=== PATIENT | female | born 1955 | race African-American/Black ===

== ENCOUNTER 2021-02-28 14:40 | Inpatient (IN) | payer MEDICAID ==
[~2021-02-28] VITALS: Ht 162.6 cm; Wt 53.7 kg
[~2021-02-28 14:40] MED LIST: CLINDAMYCIN; CLOP75TA28; LEVOXYL; SYNTHROID; TYLENOL WITH CODEINE
[2021-02-28 15:19] LABS: Basophils # (auto) 0.1 10 ^3/uL (0-0.2); Basophils % (auto) 0.6 % (0.0-2.0); Eosinophils # (auto) 0 10 ^3/uL (0-0.8); Eosinophils % (auto) 0.1 % (0.0-7.0); Hematocrit 41.8 % (36.0-46.0); Hemoglobin 13.7 g/dL (12.2-16.2); Lymphocytes % (auto) 9.7 % (10.0-50.0); Mean Corpuscular Hemoglobin 26.9 pg (28.0-32.0); Mean Corpuscular Hgb Conc. 32.8 g/dL (32.0-36.0); Mean Corpuscular Volume 81.9 fL (80.0-100.0); Monocytes # (auto) 0.7 10 ^3/uL (0-1.3); Monocytes % (auto) 7.2 % (0.0-12.0); Neutrophils # (auto) 8.5 10 ^3/uL (1.6-8.6); Neutrophils % (auto) 82.4 % (37.0-80.0); Red Cell Distribution Width 13.6 % (11.8-14.3); White Blood Cell 10.3 10^3/uL (4.4-10.8)
[2021-02-28 15:55] LABS: Albumin 3.2 g/dL (3.4-5.0); Calcium 10.1 mg/dL (8.5-10.1); Potassium 4.8 mmol/L (3.5-5.1)
[2021-02-28 15:58] LABS: BUN/Creatinine Ratio 23.5; Bilirubin, Total 0.4 mg/dL (0.2-1.0); Total Protein 8.3 g/dL (6.4-8.2)
[2021-02-28] MEDS ORDERED: IOHEXOL 300 MG/ML 100ML BOTTLE IJ ONE (16:58)
[2021-02-28] MEDS ORDERED: METOCLOPRAMIDE HCL 5MG/ml INJ 2ml VIAL IV ONE (17:00)
[2021-02-28] MEDS ORDERED: SODIUM CHLORIDE 0.9% 1,000 ML IV ONE (17:00)
[2021-02-28] MEDS ORDERED: SODIUM CHLORIDE 0.9% 500 ML IVB ONE (17:00)
[2021-02-28] MEDS ORDERED: HYDROmorphone HCL 2 MG/ML VL IV ONE ×2 (17:00→22:00)
[2021-02-28 17:33] LABS: Magnesium 2.4 mg/dL (1.6-2.6)
[2021-02-28 17:38] LABS: Urine Bacteria FEW /hpf (None Seen); Urine Blood Negative /uL (Negative); Urine Hyaline Cast MANY /lpf (0 - 2); Urine Mucus FEW (None Seen); Urine Specific Gravity 1.029 (1.001-1.035); Urine WBC 2 /hpf (0 - 5)
[2021-02-28] MEDS ORDERED: CIPROFLOXACIN 400MG/200ML 200 ML IV ONE (21:00)
[2021-02-28] MEDS ORDERED: metroNIDAZOLE 500MG/100ML 100 ML IV ONE (21:00)
[2021-02-28] MEDS ORDERED: ONDANSETRON HCL 4 MG/2 ML VIAL ONE (21:50)
[2021-02-28] MEDS ORDERED: ONDANSETRON HCL 4 MG/2 ML VIAL IV ONE (22:00)
[2021-02-28 22:29] LABS: INR 1.02 (0.9-1.15)
[2021-02-28] MEDS: SODIUM CHLORIDE 0.9% 1,000 ML IV SCH (23:45)
[2021-02-28] MEDS ORDERED: HYDROcodone-ACET 5/325MG TAB PO PRN (23:45)
[2021-02-28] MEDS ORDERED: ACETAMINOPHEN 325 MG TAB PO PRN (23:45)
[2021-03-01] VITALS (8 sets, daily range): BP systolic 114–161; BP diastolic 66–96
[2021-03-01] MEDS ORDERED: NITROGLYCERIN 0.4 MG SL TAB SL PRN (00:15)
[2021-03-01] MEDS ORDERED: MORPHINE SULFATE INJECTION 2 MG/ML SYRG IV PRN (00:15)
[2021-03-01] MEDS: hydrALAZINE HCL 20 MG/ML VL IV PRN (01:17)
[2021-03-01] MEDS: HYDROmorphone HCL 2 MG/ML VL IV PRN ×5 (01:17→22:19)
[2021-03-01] MEDS ORDERED: TRAZ50TA2 PO (01:47)
[2021-03-01] MEDS ORDERED: ATOR40TA52 PO (01:47)
[2021-03-01] MEDS ORDERED: CARV3.1240 PO (01:47)
[2021-03-01] MEDS ORDERED: LISI-275 PO (01:47)
[2021-03-01] MEDS: metroNIDAZOLE 500MG/100ML 100 ML IV SCH ×3 (05:14→22:18)
[2021-03-01 05:25] LABS: Hemoglobin 11.7 g/dL (12.2-16.2); Red Cell Distribution Width 13.5 % (11.8-14.3); White Blood Cell 3.3 10^3/uL (4.4-10.8)
[2021-03-01 05:31] LABS: Hematocrit 34.5 % (36.0-46.0); Mean Corpuscular Hemoglobin 27.8 pg (28.0-32.0); Mean Corpuscular Hgb Conc. 33.9 g/dL (32.0-36.0); Mean Corpuscular Volume 82.1 fL (80.0-100.0); Red Blood Cells 4.21 10^6/uL (4.0-5.20)
[2021-03-01 05:37] LABS: Basophils % (manual) 0 (0.0-2.0); Blast Cells 0; Eosinophils % (manual) 0 (0-7); Metamyelocytes % 0; Myelocytes % 0; Promyelocytes % 0; Reactive Lymphocytes 0
[2021-03-01 05:38] LABS: Albumin 2.5 g/dL (3.4-5.0); Calcium 8.3 mg/dL (8.5-10.1)
[2021-03-01 05:49] LABS: BUN/Creatinine Ratio 28.3; Bilirubin, Total 0.4 mg/dL (0.2-1.0); Total Protein 6.5 g/dL (6.4-8.2)
[2021-03-01 07:30] LABS: Band Neutrophils % (manual) 10; Lymphocytes % (manual) 23 (10.0-50.0)
[2021-03-01 07:31] LABS: Monocytes % (manual) 16 (0-12)
[2021-03-01] MEDS: ENOXAPARIN SOD 40 MG/0.4 ML SYRINGE SC SCH (10:00)
[2021-03-01] MEDS: CIPROFLOXACIN 400MG/200ML 200 ML IV SCH ×2 (10:00→22:18)
[2021-03-01] MEDS: FAMOTIDINE (10MG/ML) 2ML VL IV SCH ×2 (10:00→22:18)
[2021-03-01] MEDS ORDERED: LEVO75TA6 PO (14:19)
[2021-03-01] MEDS ORDERED: HYDROmorphone HCL 2 MG/ML VL IV ONE (14:30)
[2021-03-01] MEDS: LEVOTHYROXINE SODIUM 100 MCG/5 ML INJ IV SCH (15:30)
[2021-03-01] MEDS: SODIUM CHLORIDE 0.9% 1,000 ML IV SCH (16:46)
[2021-03-02] MEDS: HYDROmorphone HCL 2 MG/ML VL IV PRN ×6 (02:14→21:18)
[2021-03-02] MEDS ORDERED: TEMAZEPAM 15 MG CAP PO ONE (03:00)
[2021-03-02 05:00] VITALS: BP 158/85
[2021-03-02 06:08] LABS: Basophils # (auto) 0 10 ^3/uL (0-0.2); Basophils % (auto) 0.3 % (0.0-2.0); Eosinophils # (auto) 0.1 10 ^3/uL (0-0.8); Eosinophils % (auto) 2.4 % (0.0-7.0); Hematocrit 32.3 % (36.0-46.0); Hemoglobin 10.6 g/dL (12.2-16.2); Lymphocytes # (auto) 1.1 10 ^3/uL (0.4-5.4); Lymphocytes % (auto) 26.1 % (10.0-50.0); Mean Corpuscular Hemoglobin 27.3 pg (28.0-32.0); Mean Corpuscular Hgb Conc. 32.8 g/dL (32.0-36.0); Mean Corpuscular Volume 83.1 fL (80.0-100.0); Monocytes # (auto) 0.7 10 ^3/uL (0-1.3); Neutrophils # (auto) 2.3 10 ^3/uL (1.6-8.6); Neutrophils % (auto) 54.2 % (37.0-80.0); Red Blood Cells 3.88 10^6/uL (4.0-5.20); Red Cell Distribution Width 13.6 % (11.8-14.3); White Blood Cell 4.3 10^3/uL (4.4-10.8)
[2021-03-02] MEDS: metroNIDAZOLE 500MG/100ML 100 ML IV SCH ×3 (06:12→21:18)
[2021-03-02] MEDS: hydrALAZINE HCL 20 MG/ML VL IV PRN (06:12)
[2021-03-02 06:26] LABS: Potassium 4.2 mmol/L (3.5-5.1)
[2021-03-02 06:32] LABS: BUN/Creatinine Ratio 27.3; Calcium 8.3 mg/dL (8.5-10.1)
[2021-03-02] MEDS: SODIUM CHLORIDE 0.9% 1,000 ML IV SCH (09:05)
[2021-03-02] MEDS: FAMOTIDINE (10MG/ML) 2ML VL IV SCH ×2 (09:25→21:25)
[2021-03-02] MEDS: LEVOTHYROXINE SODIUM 100 MCG/5 ML INJ IV SCH (09:25)
[2021-03-02] MEDS: CIPROFLOXACIN 400MG/200ML 200 ML IV SCH ×2 (09:26→22:48)
[2021-03-02 09:28] VITALS: BP 133/66
[2021-03-02] MEDS: ENOXAPARIN SOD 40 MG/0.4 ML SYRINGE SC SCH (09:37)
[2021-03-02 12:54] VITALS: BP 145/67
[2021-03-02] MEDS ORDERED: fentaNYL CITRATE 100 MCG/2 ML VL ONE (16:24)
[2021-03-02] MEDS ORDERED: fentaNYL CITRATE 5 ML ONE (16:25)
[2021-03-02] MEDS ORDERED: MIDAZOLAM HCL 2MG/2ML 2ml VIAL (1mg/ml) ONE (16:26)
[2021-03-02] MEDS ORDERED: NEOSTIGMINE 1 MG/ML INJ (10mg/10ML VIAL) ONE (16:26)
[2021-03-02] MEDS ORDERED: PROPOFOL 10 MG/ML 20 ML IV ONE (16:26)
[2021-03-02] MEDS ORDERED: ONDANSETRON HCL 4 MG/2 ML VIAL ONE (16:26)
[2021-03-02] MEDS ORDERED: ROCURONIUM 10MG/ML 10ML VIAL IV ONE (16:26)
[2021-03-02] MEDS ORDERED: GLYCOPYRROLATE 0.2 MG/ML 1ML VIAL ONE (16:26)
[2021-03-02 17:27] VITALS: BP 150/76
[2021-03-02 22:00] VITALS: BP 153/89
[2021-03-03] MEDS: SODIUM CHLORIDE 0.9% 1,000 ML IV SCH ×2 (01:54→18:14)
[2021-03-03] MEDS: hydrALAZINE HCL 20 MG/ML VL IV PRN (04:18)
[2021-03-03 05:02] VITALS: BP 151/73
[2021-03-03] MEDS: metroNIDAZOLE 500MG/100ML 100 ML IV SCH ×3 (05:18→21:57)
[2021-03-03] MEDS: ONDANSETRON HCL 4 MG/2 ML VIAL IV PRN (05:19)
[2021-03-03] MEDS: HYDROmorphone HCL 2 MG/ML VL IV PRN ×4 (05:20→20:07)
[2021-03-03 05:27] VITALS: BP 168/107
[2021-03-03 07:29] LABS: Basophils # (auto) 0 10 ^3/uL (0-0.2); Basophils % (auto) 0.2 % (0.0-2.0); Eosinophils # (auto) 0.1 10 ^3/uL (0-0.8); Eosinophils % (auto) 1.3 % (0.0-7.0); Hematocrit 33.3 % (36.0-46.0); Hemoglobin 10.7 g/dL (12.2-16.2); Lymphocytes # (auto) 0.5 10 ^3/uL (0.4-5.4); Lymphocytes % (auto) 9.7 % (10.0-50.0); Mean Corpuscular Hemoglobin 26.5 pg (28.0-32.0); Mean Corpuscular Hgb Conc. 32.2 g/dL (32.0-36.0); Mean Corpuscular Volume 82.3 fL (80.0-100.0); Monocytes # (auto) 0.7 10 ^3/uL (0-1.3); Monocytes % (auto) 12.5 % (0.0-12.0); Neutrophils % (auto) 76.3 % (37.0-80.0); Nucleated Red Blood Cells % 0.3 %; Red Blood Cells 4.05 10^6/uL (4.0-5.20); Red Cell Distribution Width 13.2 % (11.8-14.3); White Blood Cell 5.3 10^3/uL (4.4-10.8)
[2021-03-03 07:44] LABS: BUN/Creatinine Ratio 22.6; Calcium 8.2 mg/dL (8.5-10.1); Potassium 3.9 mmol/L (3.5-5.1)
[2021-03-03] MEDS ORDERED: GASTROGRAFIN 120 ML SOL ONE (08:52)
[2021-03-03 09:00] VITALS: BP 137/67
[2021-03-03] MEDS: ENOXAPARIN SOD 40 MG/0.4 ML SYRINGE SC SCH (10:00)
[2021-03-03] MEDS: CIPROFLOXACIN 400MG/200ML 200 ML IV SCH ×2 (10:42→21:57)
[2021-03-03] MEDS: FAMOTIDINE (10MG/ML) 2ML VL IV SCH ×2 (10:43→21:57)
[2021-03-03] MEDS: LEVOTHYROXINE SODIUM 100 MCG/5 ML INJ IV SCH (10:43)
[2021-03-03 12:43] VITALS: BP 141/74
[2021-03-03 16:49] VITALS: BP 171/90
[2021-03-03] MEDS ORDERED: levoFLOXacin 500MG 100 ML IV ONE (18:00)
[2021-03-03 22:00] VITALS: BP 159/82
[2021-03-04] MEDS: hydrALAZINE HCL 20 MG/ML VL IV PRN (00:21)
[2021-03-04] MEDS: HYDROmorphone HCL 2 MG/ML VL IV PRN ×6 (01:27→23:21)
[2021-03-04 05:00] VITALS: BP 146/74
[2021-03-04] MEDS: metroNIDAZOLE 500MG/100ML 100 ML IV SCH ×3 (05:37→22:02)
[2021-03-04] MEDS: ONDANSETRON HCL 4 MG/2 ML VIAL IV PRN (05:59)
[2021-03-04 06:12] LABS: Basophils # (auto) 0 10 ^3/uL (0-0.2); Eosinophils # (auto) 0 10 ^3/uL (0-0.8); Lymphocytes # (auto) 0.8 10 ^3/uL (0.4-5.4); Monocytes # (auto) 0.6 10 ^3/uL (0-1.3); Red Cell Distribution Width 13.5 % (11.8-14.3)
[2021-03-04 06:15] LABS: Basophils % (auto) 0.2 % (0.0-2.0); Eosinophils % (auto) 0.2 % (0.0-7.0); Hematocrit 34.1 % (36.0-46.0); Lymphocytes % (auto) 9.7 % (10.0-50.0); Mean Corpuscular Hemoglobin 26.4 pg (28.0-32.0); Mean Corpuscular Hgb Conc. 32.1 g/dL (32.0-36.0); Mean Corpuscular Volume 82.2 fL (80.0-100.0); Monocytes % (auto) 7.7 % (0.0-12.0); Neutrophils # (auto) 6.9 10 ^3/uL (1.6-8.6); Neutrophils % (auto) 82.2 % (37.0-80.0); Red Blood Cells 4.15 10^6/uL (4.0-5.20); White Blood Cell 8.4 10^3/uL (4.4-10.8)
[2021-03-04 06:21] LABS: INR 1.13 (0.9-1.15); Partial Thromboplastin Time 26.8 sec (23.6-33.0)
[2021-03-04 06:22] LABS: BUN/Creatinine Ratio 28.6; Calcium 8.7 mg/dL (8.5-10.1); Potassium 3.7 mmol/L (3.5-5.1)
[2021-03-04 09:00] VITALS: BP 147/84
[2021-03-04] MEDS: FAMOTIDINE (10MG/ML) 2ML VL IV SCH ×2 (09:54→22:02)
[2021-03-04] MEDS: CIPROFLOXACIN 400MG/200ML 200 ML IV SCH ×2 (09:54→22:02)
[2021-03-04] MEDS: LEVOTHYROXINE SODIUM 100 MCG/5 ML INJ IV SCH (09:54)
[2021-03-04] MEDS: ENOXAPARIN SOD 40 MG/0.4 ML SYRINGE SC SCH (09:55)
[2021-03-04] MEDS ORDERED: levoFLOXacin 500MG 100 ML IV SCH (10:00)
[2021-03-04] MEDS: SODIUM CHLORIDE 0.9% 1,000 ML IV SCH (11:27)
[2021-03-04 13:00] VITALS: BP 142/71
[2021-03-04 17:00] VITALS: BP 163/87
[2021-03-04 22:00] VITALS: BP 143/73
[2021-03-05] MEDS: SODIUM CHLORIDE 0.9% 1,000 ML IV SCH ×2 (03:45→20:17)
[2021-03-05] MEDS: HYDROmorphone HCL 2 MG/ML VL IV PRN ×4 (04:08→21:49)
[2021-03-05] MEDS: hydrALAZINE HCL 20 MG/ML VL IV PRN (04:09)
[2021-03-05] MEDS: ONDANSETRON HCL 4 MG/2 ML VIAL IV PRN (04:10)
[2021-03-05 05:10] VITALS: BP 190/95
[2021-03-05] MEDS: metroNIDAZOLE 500MG/100ML 100 ML IV SCH ×3 (05:28→21:29)
[2021-03-05 05:42] LABS: Basophils # (auto) 0 10 ^3/uL (0-0.2); Basophils % (auto) 0.3 % (0.0-2.0); Eosinophils # (auto) 0.1 10 ^3/uL (0-0.8); Hemoglobin 10.8 g/dL (12.2-16.2)
[2021-03-05 05:45] LABS: Eosinophils % (auto) 1.5 % (0.0-7.0); Hematocrit 33.6 % (36.0-46.0); Lymphocytes % (auto) 12.8 % (10.0-50.0); Mean Corpuscular Hemoglobin 26.5 pg (28.0-32.0); Mean Corpuscular Hgb Conc. 32.1 g/dL (32.0-36.0); Mean Corpuscular Volume 82.6 fL (80.0-100.0); Monocytes # (auto) 0.8 10 ^3/uL (0-1.3); Monocytes % (auto) 10.4 % (0.0-12.0); Red Blood Cells 4.07 10^6/uL (4.0-5.20); Red Cell Distribution Width 13.3 % (11.8-14.3)
[2021-03-05 05:52] LABS: BUN/Creatinine Ratio 29.4; Calcium 8.5 mg/dL (8.5-10.1); Potassium 3.2 mmol/L (3.5-5.1)
[2021-03-05 09:17] VITALS: BP 151/78
[2021-03-05] MEDS: CIPROFLOXACIN 400MG/200ML 200 ML IV SCH ×2 (10:04→21:29)
[2021-03-05] MEDS: FAMOTIDINE (10MG/ML) 2ML VL IV SCH ×2 (10:04→21:30)
[2021-03-05] MEDS: LEVOTHYROXINE SODIUM 100 MCG/5 ML INJ IV SCH (10:05)
[2021-03-05 13:00] VITALS: BP 143/84
[2021-03-05] MEDS: POTASSIUM CHL 20MEQ/100ML 100 ML IV SCH ×2 (15:08→18:01)
[2021-03-05] MEDS: ENOXAPARIN SOD 40 MG/0.4 ML SYRINGE SC SCH (15:08)
[2021-03-05 16:57] VITALS: BP 151/84
[2021-03-05 22:00] VITALS: BP 152/82
[2021-03-06] MEDS: hydrALAZINE HCL 20 MG/ML VL IV PRN ×2 (04:50→19:52)
[2021-03-06 05:06] VITALS: BP 166/94
[2021-03-06] MEDS: metroNIDAZOLE 500MG/100ML 100 ML IV SCH ×2 (05:12→13:41)
[2021-03-06 07:03] LABS: Basophils # (auto) 0.1 10 ^3/uL (0-0.2); Lymphocytes # (auto) 1.4 10 ^3/uL (0.4-5.4); Monocytes # (auto) 0.9 10 ^3/uL (0-1.3)
[2021-03-06 07:05] LABS: Eosinophils # (auto) 0.2 10 ^3/uL (0-0.8); Eosinophils % (auto) 1.9 % (0.0-7.0); Hematocrit 35.6 % (36.0-46.0); Hemoglobin 11.6 g/dL (12.2-16.2); Lymphocytes % (auto) 14.8 % (10.0-50.0); Mean Corpuscular Hgb Conc. 32.5 g/dL (32.0-36.0); Neutrophils # (auto) 6.8 10 ^3/uL (1.6-8.6); Neutrophils % (auto) 72.3 % (37.0-80.0); Nucleated Red Blood Cells % 0.1 %; Red Blood Cells 4.29 10^6/uL (4.0-5.20); Red Cell Distribution Width 13.5 % (11.8-14.3); White Blood Cell 9.4 10^3/uL (4.4-10.8)
[2021-03-06 07:22] LABS: Potassium 3.3 mmol/L (3.5-5.1)
[2021-03-06 07:31] LABS: Calcium 8.6 mg/dL (8.5-10.1)
[2021-03-06 09:00] VITALS: BP 144/75
[2021-03-06] MEDS: CIPROFLOXACIN 400MG/200ML 200 ML IV SCH (09:28)
[2021-03-06] MEDS: FAMOTIDINE (10MG/ML) 2ML VL IV SCH (09:28)
[2021-03-06] MEDS: ENOXAPARIN SOD 40 MG/0.4 ML SYRINGE SC SCH (09:29)
[2021-03-06] MEDS: LEVOTHYROXINE SODIUM 100 MCG/5 ML INJ IV SCH (09:29)
[2021-03-06 13:00] VITALS: BP 157/80
[2021-03-06] MEDS: SODIUM CHLORIDE 0.9% 1,000 ML IV SCH (13:05)
[2021-03-06 17:00] VITALS: BP 165/98
[2021-03-06] MEDS ORDERED: CARVEDILOL 3.125 MG TAB PO SCH (17:45)
[2021-03-06] MEDS ORDERED: LISINOPRIL 5 MG TAB PO SCH ×2 (17:45)
[2021-03-06] MEDS ORDERED: POTASSIUM EFFERVESENT TAB 25 MEQ PO ONE (17:45)
[2021-03-06 20:25] VITALS: BP 179/94
[2021-03-06] MEDS ORDERED: ATORVASTATIN 20 MG TAB PO SCH (22:00)
[2021-03-07] MEDS ORDERED: LEVOTHYROXINE SODIUM 25 MCG TAB PO SCH (07:00)
== END 2021-03-06 21:08 | disposition home or self-care (01) | DRG 247 ==
LOC: EDBD 14:40 → ER 14:40 → CENTRAL 03-01 00:01
PROVIDERS: ADMIT Nurse Practitioner Family; ATTEND Internal Medicine
PROC: 0D9670Z Drainage of Stomach with Drainage Device, Via Natural or Artificial Opening (ICD-10-PCS; principal; 2021-03-01)
DX: K56.609 Unspecified intestinal obstruction, unspecified as to partial versus complete obstruction (principal); E44.1 Mild protein-calorie malnutrition; E87.1 Hypo-osmolality and hyponatremia; E03.9 Hypothyroidism, unspecified; D75.839 Thrombocytosis, unspecified; E78.5 Hyperlipidemia, unspecified; I25.10 Atherosclerotic heart disease of native coronary artery without angina pectoris; I10 Essential (primary) hypertension; R53.81 Other malaise; E87.6 Hypokalemia; N39.0 Urinary tract infection, site not specified; Z20.822 Contact with and (suspected) exposure to COVID-19; Z68.20 Body mass index [BMI] 20.0-20.9, adult; I25.2 Old myocardial infarction; Z95.5 Presence of coronary angioplasty implant and graft; Z88.0 Allergy status to penicillin
CPT/HCPCS: 36415; 71046; 74018; 74177; 74250; 80048; 80053; 81001; 83036; 83690; 83735; 84443; 84484; 85007; 85025; 85027; 85610; 85730; 86850; 86900; 86901; 87086; 87088; 87426; 93005; 93306; 96361; 96365; 96366; 96367; 96375; 96376; G0378; J2250; J2405; J2704; J3480; J3490